=== PATIENT | female | born 1995 | race Caucasian/White ===

== ENCOUNTER 2024-06-28 20:54 | Emergency (ER) | payer SELFPAY ==
[~2024-06-28] VITALS: Ht 167.6 cm; Wt 86.2 kg
[2024-06-28 21:24] VITALS: BP 120/84; PULSE 64; RESP 18; TEMP 98.1; O2SAT 98
[2024-06-28 21:55] LABS: APPEARANCE,URINE CLEAR (CLEAR); BILIRUBIN,URINE NEGATIVE (NEGATIVE); BLOOD, URINE NEGATIVE (NEGATIVE); COLOR,URINE YELLOW (YELLOW); LEUKOCYTE ESTERASE ,URINE TRACE (NEGATIVE); NITRITE, URINE POSITIVE (NEGATIVE); PROTEIN,URINE NEGATIVE (NEGATIVE); UGLUCOSE NEGATIVE (NEGATIVE)
[2024-06-28 22:02] LABS: RBC,URINE 0-5 /HPF (0-5)
[2024-06-28 22:03] LABS: BACTERIA,URINE 1+ /HPF (None Seen); MUCUS,URINE 1+ /LPF (None Seen); SQUAMOUS EPITHELIAL CELL,UR 4-10 (MOD) /LPF (0-3 (FEW))
[2024-06-28] MEDS: NACL 0.9% 1,000 ML IV ONE (23:03)
[2024-06-28] MEDS: MORPHINE SULFATE 4 MG/ML SYR IVP ONE (23:03)
[2024-06-28 23:16] LABS: BASOPHILS # (AUTO) 0.1 K/uL (0.00-0.22); EOSINOPHILS # (AUTO) 0.3 K/uL (0-0.4); EOSINOPHILS % (AUTO) 2.5 % (0.0-4.0); HEMATOCRIT 36.7 % (36-48); HEMOGLOBIN 12.4 g/dL (12.0-16.0); LYMPHOCYTES % (AUTO) 39.3 % (20.5-51.1); MEAN CORPUSCULAR HEMOGLOBIN 28 pg (27-31); MEAN CORPUSCULAR HGB CONC 34 g/dL (33-37); MEAN CORPUSCULAR VOLUME 83.7 fL (80-94); MONOCYTES # (AUTO) 0.9 K/uL (0.8-1.0); MONOCYTES % (AUTO) 9.1 % (1.7-9.3); NEUTROPHILS # (AUTO) 4.9 K/uL (1.8-7.7); NEUTROPHILS % (AUTO) 48.1 % (42.2-75.2); PLATELET COUNT (AUTO) 285 K/uL (140-450); RED BLOOD CELL COUNT(AUTO) 4.38 MIL/uL (4.20-5.40); RED CELL DISTRIBUTION WIDTH 13.8 % (11.6-13.7); WHITE BLOOD COUNT (AUTO) 10.2 K/uL (4.8-10.8)
[2024-06-28 23:40] LABS: POTASSIUM 3.3 mmol/L (3.5-5.1)
[2024-06-28 23:41] LABS: ANION GAP 8.9 (8-16); CALCIUM 8.9 mg/dL (8.5-10.1); CARBON DIOXIDE 32.4 mmol/L (21-32); CREATININE 0.9 mg/dL (0.6-1.3)
[2024-06-28 23:43] LABS: ALBUMIN 3.7 g/dL (3.4-5.0); BILIRUBIN,DIRECT 0.1 mg/dL (0.0-0.3); TOTAL BILIRUBIN 0.8 mg/dL (0.0-1.0); TOTAL PROTEIN, SERUM 7.2 g/dL (6.4-8.2)
[2024-06-29] MEDS ORDERED: PHEN-1877 PO (00:20)
[2024-06-29] MEDS ORDERED: NITR100C7 PO (00:20)
[2024-06-29 00:25] VITALS: BP 115/71; PULSE 74; RESP 18; TEMP 98.4; O2SAT 97
== END 2024-06-29 00:25 | disposition home or self-care (01) ==
LOC: MED 20:54
DX: N39.0 Urinary tract infection, site not specified (principal); R19.7 Diarrhea, unspecified; Z79.899 Other long term (current) drug therapy; Z88.8 Allergy status to other drugs, medicaments and biological substances
CPT/HCPCS: 36415; 74176; 80048; 80076; 81001; 81025; 85025; 87040; 87086; 96361; 96374; 99285; J2270; J7030